=== PATIENT | female | born 1965 | race African-American/Black ===

== ENCOUNTER 2021-06-08 17:50 | Emergency (ER) | payer OTHER ==
[2021-06-08 17:57] VITALS: BP 138/94; PULSE 94; TEMP 98.6; BMI 29.6
== END 2021-06-08 18:20 | disposition home or self-care (01) ==
LOC: JERFT 17:50 → JER 17:50 → JERFT 18:20
DX: S93.602A Unspecified sprain of left foot, initial encounter (principal)
CPT/HCPCS: 73610-TC-LT-FY; 73630-TC-LT; 99284-25

== ENCOUNTER 2021-07-31 07:25 | Emergency (ER) | payer OTHER ==
[2021-07-31 07:39] VITALS: BP 116/80; PULSE 74; TEMP 98; BMI 30.4
[2021-07-31] MEDS ORDERED: IBUPROFEN 600 MG TABLET (FP) PO ONE ×2 (07:45→07:49)
[2021-07-31] MEDS ORDERED: IBUPROFEN 400 MG TABLET (FP) PO ONE (07:54)
== END 2021-07-31 08:01 | disposition home or self-care (01) ==
LOC: JERFT 07:25 → JER 07:25 → JERFT 08:01
DX: S80.01XA Contusion of right knee, initial encounter (principal); W01.0XXA Fall on same level from slipping, tripping and stumbling without subsequent striking against object, initial encounter
CPT/HCPCS: 99283-25

== ENCOUNTER 2021-11-12 11:06 | Emergency (ER) | payer OTHER | END 2021-11-12 11:23 | disposition home or self-care (01) | LOC: JVIRT 11:06 | DX: Z20.822 Contact with and (suspected) exposure to COVID-19 (principal) | CPT/HCPCS: 87804; C9803-CS; Q3014-GT; U0003; U0005 ==

== ENCOUNTER 2022-07-07 15:12 | Emergency (ER) | payer OTHER ==
[2022-07-07 15:35] VITALS: BP 127/68; PULSE 82; RESP 16; TEMP 98.3; BMI 29.7
== END 2022-07-07 16:19 | disposition home or self-care (01) ==
LOC: JERFT 15:12
DX: G56.01 Carpal tunnel syndrome, right upper limb (principal)
CPT/HCPCS: 73130-TC-RT-FY; 99283-25

== ENCOUNTER 2023-08-25 10:17 | Emergency (ER) | payer OTHER ==
[2023-08-25 10:25] VITALS: BP 147/86; PULSE 77; RESP 18; TEMP 98.5; BMI 28.8
== END 2023-08-25 11:19 | disposition home or self-care (01) ==
LOC: JER 10:17
DX: M25.521 Pain in right elbow (principal); M25.531 Pain in right wrist; R20.2 Paresthesia of skin; M79.641 Pain in right hand; R55 Syncope and collapse; W18.39XA Other fall on same level, initial encounter
CPT/HCPCS: 99282-25